=== PATIENT | female | born 1955 | race Caucasian/White ===

== ENCOUNTER 2020-03-27 09:41 | Outpatient (CLI) | payer MEDICARE ==
--- NOTE | 2020-03-27 10:35 | ULT ---
COMPLETE ABDOMEN ULTRASOUND INDICATION: Abdominal bloating TECHNIQUE: Grayscale, color Doppler and spectral Doppler were obtained of the abdomen. COMPARISON: None FINDINGS: Liver: Normal. Main portal vein: Patent with appropriate hepatopedal flow Pancreas: Visualized aspects appeared normal. Gallbladder: 2 small 2 mm nonmobile echogenic gallbladder polyps. Common bile duct:3.6 mm. Right kidney: The right kidney measured 9.4 x 4.2 x 3.6 cm. No focal renal lesion or hydronephrosis i s evident. Left kidney: The left kidney measured 10.1 x 4.2 x 5.0 cm. No focal renal lesion or hydronephrosis is demonstrated. Aorta and IVC: Appeared within normal limits. Spleen: 9.6cm in length. No focal splenic lesion is evident. Free fluid: None. IMPRESSION: 1. 2 small 2 mm nonmobile echogenic gallbladder polyps. Follow-up right upper quadrant ultrasound in 6 months is recommended to document stability. 2. No additional acute sonographic abnormality within the abdomen.
== END 2020-03-27 09:42 | disposition home or self-care (01) ==
LOC: BICULT 09:41
PROVIDERS: ATTEND Nurse Practitioner Family
DX: R14.0 Abdominal distension (gaseous) (principal); K82.4 Cholesterolosis of gallbladder
CPT/HCPCS: 93975